=== PATIENT | male | born 1970 | race Caucasian/White ===

== ENCOUNTER 2017-04-03 02:24 | Emergency (ER) | payer SELFPAY ==
[~2017-04-03] VITALS: Ht 188 cm; Wt 95.0 kg
[~2017-04-03 02:24] MED LIST: CYCL-36 PO; LORT5TAB PO; MELO15TA2 PO; Z.0.NO CURRENT MEDS
[2017-04-03 02:26] VITALS: BP 163/95; PULSE 112; RESP 16; TEMP 97.9; O2SAT 97
[2017-04-03] MEDS ORDERED: TETANUS/DIPHTHERIA TOXOID ADULT 0.5 ML VIAL IM ONE (03:15)
[2017-04-03] MEDS ORDERED: ACETAMINOPHEN/HYDROcodone 325 MG/5 MG TAB PO ONE (03:30)
--- NOTE | 2017-04-03 04:18 | RADRPT ---
EXAM DATE/TIME: 04/03/2017 03:05 [facility] COMPARISON: No previous studies available for comparison. INDICATIONS : Pt punched glass door- laceration to right forearm MEDICAL HISTORY : None. SURGICAL HISTORY : None. ENCOUNTER: Initial ACUITY: 1 day PAIN SCORE: 8/10 LOCATION: Right Hand FINDINGS: Two view examination of the right hand demonstrates no soft tissue swelling, dislocation, or fracture . The joint spaces are maintained. Bony mineralization is normal. CONCLUSION: Unremarkable limited examination of the right hand. Tyson Sinha MD on April 03, 2017 at 4:17 Board Certified Radiologist. This report was verified electronically.
--- NOTE | 2017-04-03 04:19 | RADRPT ---
EXAM DATE/TIME: 04/03/2017 03:09 [facility] COMPARISON: No previous studies available for comparison. INDICATIONS : Pt punched glass door- laceration to right forearm MEDICAL HISTORY : None. SURGICAL HISTORY : None. ENCOUNTER: Initial ACUITY: 1 day PAIN SCORE: 8/10 LOCATION: Right Forearm FINDINGS: Two view examination of the right forearm demonstrates no evidence of fracture or dislocation. Bony mineralization is normal. The soft tissue structures are intact. CONCLUSION: Unremarkable examination of the right forearm. Tyson Sinha MD on April 03, 2017 at 4:17 Board Certified Radiologist. This report was verified electronically.
[2017-04-03] MEDS ORDERED: HYDR-3533 PO (04:38)
[2017-04-03] MEDS ORDERED: IBUP800T23 PO (04:38)
--- NOTE | 2017-04-03 04:54 | PD ---
HPI Chief Complaint: Injury Time Seen by Provider: 03:14 Travel History International Travel<30 days: No Contact w/Intl Traveler<30days: No Traveled to known affect area: No History of Present Illness HPI 46-year-old white male presents to emergency department with complains of lacerations to his right hand and forearm after putting his arm through the sliding glass door of his house. He states that he had gotten locked out of her house accidentally. He states that he was banging on the single pane glass of the slider when it broke. The patient denies any numbness or tingling. He had called in 911 who came to the scene and wrapped his arm. He presents by POV. He denies any limitations of movement. No other injuries. Patient has not had a tetanus shot over 5 years. He states pain is moderate. He admits to drinking alcohol earlier. PFSH Past Medical History Medical History: Denies Significant Hx Diminished Hearing: No Immunizations Current: Yes Tetanus Vaccination: > 5 Years Influenza Vaccination: No Past Surgical History Surgical History: No Previous Surgery Social History Alcohol Use: Yes (BEER, 6 PACK PER DAY) Tobacco Use: Yes (CIGARETTES, 1PPD) Substance Use: No Allergies-Medications (Allergen,Severity, Reaction): Coded Allergies: No Known Allergies (Verified , 04/03/17) Reported Meds & Prescriptions Reported Meds & Active Scripts Active Ibuprofen 800 Mg Tab 800 Mg PO Q8H PRN Lortab (Hydrocodone-Acetaminophen) 5-325 Mg Tab 1 Tab PO Q6H PRN Review of Systems Except as stated in HPI: all other systems reviewed are Neg Physical Exam Narrative GENERAL: This is a well-nourished, well-developed patient, in no apparent distress. SKIN: No rashes, ecchymoses or lesions. Warm and dry. Patient has multiple lacerations involving the right hand, right wrist and right forearm. HEAD: Atraumatic. Normocephalic. EYES: PERRL, EOMI, no discharge or injection. No scleral icterus. EARS: Clear NOSE: Nasal turbinates appear normal. THROAT: Mucosa pink and moist. Airway patent. NECK: Trachea midline. supple, moves head freely. LUNGS: Clear to auscultation. CV: Regular in rhythm. ABDOMEN: Soft nontender. EXT: No clubbing cyanosis or edema. Patient has full range of motion of the right upper extremity. He has intact median/ulnar/radial nerves. He has good quality compliance consultant. He is able to extend and flex his wrist freely. Data Data Last Documented VS Vital Signs Date Time Temp Pulse Resp B/P (MAP) Pulse Ox O2 Delivery O2 Flow Rate FiO2 04/03/17 02:26 97.9 112 16 163/95 (117) 97 Room Air Orders Orders Forearm (2vws) (04/03/17 03:05) Hand, Limited (2vws) (04/03/17 03:05) Tetanus/Diphtheria Tox Adult (Tetanus/Di (04/03/17 03:15) Acetamin-Hydrocod 325-5 Mg (Withams 5-325 (04/03/17 03:30) MDM Medical Decision Making Medical Screen Exam Complete: Yes Emergency Medical Condition: Yes Medical Record Reviewed: Yes Interpretation(s) Right hand: Negative for acute fracture or foreign body. Right forearm: Negative for acute fracture or foreign body. Differential Diagnosis MDM: High Differential diagnoses: Fracture, sprain, strain, dislocation, contusion, neurovascular injury Narrative Course Patient's lacerations are closed with sutures. X-rays of the right hand and forearm are negative for foreign body. Patient's given Lortab 5 mg by mouth. Procedures Procedure Narrative LACERATION LOCATION: Right forearm (proximal third volar) LENGTH: 9 cm NUMBER OF STITCHES/BREE: 30 REPAIR: The area of the laceration was prepped with Betadine and sterilely draped. The laceration was infiltrated with 1% lidocaine. The wound was copiously irrigated and explored without evidence of foreign body, tendon injury or neurovascular injury. Patient does have laceration of the muscle belly of the forearm. There is no obvious tendon injury. He is able to move his hand, wrist freely. The muscle fascia is closed using 3-0 Vicryl. The subcutaneous tissues are closed using 4-0 Vicryl. The skin was closed using 3- 0 proline. This was a intermediate 3 layer repair. A sterile dressing was applied. The patient was advised to keep the dressing clean and dry. Patient tolerated the procedure well. LACERATION LOCATION: Right hand dorsal surface over the fourth metacarpal LENGTH: 4 cm NUMBER OF STITCHES/BREE: Single running REPAIR: The area of the laceration was prepped with Betadine and sterilely draped. The laceration was infiltrated with 1% lidocaine. The wound was copiously irrigated and explored without evidence of foreign body, tendon injury or neurovascular injury. The wound was closed using 5-0 proline. This was a simple single layer repair. A sterile dressing was applied. The patient was advised to keep the dressing clean and dry. Patient tolerated the procedure well. LACERATION LOCATION: Right wrist volar surface LENGTH: 2 cm NUMBER OF STITCHES/BREE: 5 REPAIR: The area of the laceration was prepped with Betadine and sterilely draped. The laceration was infiltrated with 1% lidocaine]. The wound was copiously irrigated and explored without evidence of foreign body, tendon injury or neurovascular injury. The wound was closed using 5-0 proline. This was a simple single layer repair. A sterile dressing was applied. The patient was advised to keep the dressing clean and dry. Patient tolerated the procedure well. LACERATION LOCATION: Right wrist volar surface LENGTH: 2 cm NUMBER OF STITCHES/BREE: 5 REPAIR: The area of the laceration was prepped with Betadine and sterilely draped. The laceration was infiltrated with 1% lidocaine]. The wound was copiously irrigated and explored without evidence of foreign body, tendon injury or neurovascular injury. The wound was closed using 5-0 proline. This was a simple single layer repair. A sterile dressing was applied. The patient was advised to keep the dressing clean and dry. Patient tolerated the procedure well. LACERATION LOCATION: Right hand LENGTH: 1 cm NUMBER OF STITCHES/BREE: 2 REPAIR: The area of the laceration was prepped with Betadine and sterilely draped. The laceration was infiltrated with 1% lidocaine]. The wound was copiously irrigated and explored without evidence of foreign body, tendon injury or neurovascular injury. The wound was closed using 5-0 proline. This was a simple single layer repair. A sterile dressing was applied. The patient was advised to keep the dressing clean and dry. Patient tolerated the procedure well. Diagnosis Primary Impression: right hand and right forearm lacerations Patient Instructions: General Instructions, Narcotic given in the ED Additional Instructions: Rest. Elevation. Keep clean and dry. Corwin wrap for the next 1-2 days. Rapid loosely around the wound. If it is too tight a rapid. Lortab for severe pain. Motrin. No use of the right arm times one week. Recheck with a primary care doctor in the next 2-3 days. Sutures out in 12 days. Return to the ER if any problems. Med/Other Pt SpecificInfo: Prescription(s) given, Wound Care Scripts Ibuprofen (Ibuprofen) 800 Mg Tab 800 MG PO Q8H Y for Pain/Inflammation, #60 TAB 0 Refills Prov: Juan M De La Cruz MD 04/03/17 Hydrocodone-Acetaminophen (Lortab) 5-325 Mg Tab 1 TAB PO Q6H Y for PAIN, #12 TAB 0 Refills Prov: Juan M De La Cruz MD 04/03/17 Disposition: 01 DISCHARGE HOME Condition: Stable Rey Ryan Apr 03, 2017 04:54
== END 2017-04-03 05:04 | disposition home or self-care (01) ==
LOC: NEPD 02:24
DX: S61.411A Laceration without foreign body of right hand, initial encounter (principal); S51.811A Laceration without foreign body of right forearm, initial encounter; S61.511A Laceration without foreign body of right wrist, initial encounter; F17.210 Nicotine dependence, cigarettes, uncomplicated; W25.XXXA Contact with sharp glass, initial encounter; Z23 Encounter for immunization
CPT/HCPCS: 12004; 12034; 73090; 73120; 90471; 90714